=== PATIENT | female | born 1955 | race Caucasian/White ===

== ENCOUNTER → 2017-06-14 | Outpatient (CLI) | payer BC ==
--- NOTE | 2017-06-14 14:37 | Diagnostic Imaging Report ---
EXAMINATION: Three views of the sacrum and coccyx. INDICATION: Right leg pain. FINDINGS: There are mild degenerative changes with subchondral sclerosis seen at both SI joints. There are prominent degenerative sclerotic changes at the the facet joints of L5-S1 noted. There is also grade 1 spondylolisthesis of L5 over S1. A minimally prominent disc at the S1-S2 level is seen. No fracture, dislocation, or radiopaque foreign body is seen. IMPRESSION: Degenerative changes. Dictated by: Dictated on workstation # [id number]
--- NOTE | 2017-06-14 14:37 | Diagnostic Imaging Report ---
EXAMINATION: 3 views of the lumbar spine. INDICATION: Back pain. FINDINGS: There is grade 1 retrolisthesis of L2 over L3. There is also grade 1 spondylosis is L5 over S1. The vertebral body heights are preserved. There is mild disc height loss at L4/5 and L5/S1 levels. There is prominent facet sclerotic degenerative changes in the lower lumbar spine. Mild sclerotic degenerative changes in the SI joints region is seen. The paraspinal soft tissues appear unremarkable. IMPRESSION: Degenerative changes. The alignment abnormalities also seen possibly degenerative related as well. Dictated by: Dictated on workstation # [id number]
== END ==
LOC: RAD 13:31
PROVIDERS: ATTEND Nurse Practitioner Family
DX: M47.817 Spondylosis without myelopathy or radiculopathy, lumbosacral region (principal); M43.17 Spondylolisthesis, lumbosacral region
CPT/HCPCS: 72100; 72220

== ENCOUNTER → 2017-10-03 | Outpatient (CLI) | payer BC ==
--- NOTE | 2017-10-04 09:54 | Diagnostic Imaging Report ---
EXAMINATION: Bilateral screening mammogram 2D views with tomosynthesis. The current study was also evaluated with a Computer Aided Detection (CAD) system. INDICATION: Screening. PERSONAL HISTORY: No current complaints stated on the questionnaire. COMPARISON: 08/23/2016. FINDINGS: The breasts are composed of heterogeneously dense parenchyma which may decrease mammographic sensitivity. Allowing for technique and positional differences, no suspicious change is seen. IMPRESSION: Dense breasts with no definite change. ACR BI-RADS Category 2: Benign findings. Result letter will be mailed to the patient. Note: At least 10% of breast cancer is not imaged by mammography. Dictated by: Dictated on workstation # [id number]
== END ==
LOC: RAD 09:22
PROVIDERS: ATTEND Nurse Practitioner
DX: Z12.31 Encounter for screening mammogram for malignant neoplasm of breast (principal)
CPT/HCPCS: 77067

== ENCOUNTER 2017-11-15 10:00 | Outpatient (CLI) | payer BC ==
[~2017-11-15] VITALS: Ht 152.4 cm; Wt 62.1 kg
[2017-11-15] MEDS ORDERED: MELA1TAB20 PO (10:18)
[2017-11-15] MEDS ORDERED: TURM538C PO (10:18)
[2017-11-15] MEDS ORDERED: CHOL100045 PO (10:18)
[2017-11-15] MEDS ORDERED: LISI10TA2 PO (10:18)
[2017-11-15] MEDS ORDERED: ALPR0.5T PO (10:18)
== END 2017-11-15 10:19 ==
LOC: PREOP 10:00
PROVIDERS: ATTEND Surgery
DX: Z01.818 Encounter for other preprocedural examination (principal); Z12.11 Encounter for screening for malignant neoplasm of colon

== ENCOUNTER 2017-11-20 07:02 | Day surgery (SDC) | payer BC ==
[~2017-11-20] VITALS: Ht 152.4 cm; Wt 62.1 kg
[~2017-11-20 07:02] MED LIST: ALPR0.5T PO; CHOL100045 PO; LISI10TA2 PO; MELA1TAB20 PO; TURM538C PO
--- OUTSIDE RECORDS SUMMARY | 2017-11-20 07:05 | XMS REPORT | Continuity of Care Document ---
Author Author [facility] Organization [facility] Address Unknown Phone Unavailable Allergies Active Description Code Type Severity Reaction Onset Reported/Identified Relationship to Patient Clinical Status Yes No Known Drug Allergies [id number] Drug Allergy Unknown N/A 11/15/2017 Medications There is no data. Problems Date Dx Coded Attending Type Code Diagnosis Diagnosed By 07/30/2015 JAZMYN HICKMAN DO Ot V76.12 08/24/2016 Ot Z12.31 ENCNTR SCREEN MAMMOGRAM FOR MALIGNANT NE 08/24/2016 JAZMYN HICKMAN DO Ot V76.12 OTH SCREEN MAMMO-MALIGN NEOPLASM OF EMELI 08/24/2016 JAZMYN HICKMAN DO Ot V76.12 OTH SCREEN MAMMO-MALIGN NEOPLASM OF EMELI 08/24/2016 JAZMYN HICKMAN DO Ot V76.12 OTH SCREEN MAMMO-MALIGN NEOPLASM OF EMELI 08/24/2016 Ot Z12.31 ENCNTR SCREEN MAMMOGRAM FOR MALIGNANT NE 08/25/2016 Ot Z12.31 ENCNTR SCREEN MAMMOGRAM FOR MALIGNANT NE 09/01/2016 Ot Z12.31 ENCNTR SCREEN MAMMOGRAM FOR MALIGNANT NE 06/14/2017 JAZMYN HICKMAN DO Ot V76.12 OTH SCREEN MAMMO-MALIGN NEOPLASM OF EMELI 06/14/2017 JAZMYN HICKMAN DO Ot V76.12 OTH SCREEN MAMMO-MALIGN NEOPLASM OF EMELI 06/14/2017 JAZMYN HICKMAN DO Ot V76.12 OTH SCREEN MAMMO-MALIGN NEOPLASM OF EMELI 06/14/2017 Ot Z12.31 ENCNTR SCREEN MAMMOGRAM FOR MALIGNANT NE 06/15/2017 MANOJ COLLAZO Ot M43.17 SPONDYLOLISTHESIS, LUMBOSACRAL REGION 06/15/2017 MANOJ COLLAZO Ot M47.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 Results There is no data. Encounters ACCT No. Visit Date/Time Discharge Status Pt. Type Provider Facility Loc./Unit Complaint [id number] 11/15/2017 10:00:00 11/15/2017 10:19:00 DIS Outpatient RUPERTO BASS MD [facility] PREOP COLONOSCOPY [id number] 10/03/2017 09:22:00 10/03/2017 23:59:59 CLS Outpatient ELVIS SILVA [facility] RAD Z12.31 SCREENING [id number] 06/14/2017 13:31:00 06/14/2017 23:59:59 CLS Outpatient MANOJ COLLAZO [facility] RAD M79.60 [id number] 07/13/2015 10:03:00 07/13/2015 23:59:59 CLS Outpatient JAZMYN HICKMAN DO [facility] RAD SCREENING [id number] 07/11/2014 10:36:00 07/11/2014 23:59:59 CLS Outpatient JAZMYN HICKMAN DO [facility] RAD SCREENING [id number] 07/09/2013 08:54:00 07/09/2013 23:59:59 CLS Outpatient JAZMYN HICKMAN DO [facility] RAD SCREENING [id number] 11/20/2017 08:00:00 PEN Preadmit RUPERTO BASS MD [facility] ENDO SCREENING [id number] 08/23/2016 08:54:00 Document Registration
[2017-11-20] MEDS ORDERED: NS IV 500 ML 500 ML ONE (07:22)
[2017-11-20] MEDS ORDERED: NS IV 500 ML 500 ML IV PRN (07:35)
[2017-11-20 07:38] VITALS: BP 104/48
[2017-11-20] MEDS ORDERED: MIDAZOLAM 2 MG/2 ML (VERSED) VIAL ONE ×2 (08:24)
[2017-11-20] MEDS ORDERED: fentaNYL INJECTION 100 MCG/2 ML AMP ONE ×2 (08:24→08:40)
[2017-11-20] MEDS: fentaNYL INJECTION 100 MCG/2 ML AMP IVP PRN ×4 (08:26→08:41)
[2017-11-20] MEDS: MIDAZOLAM 2 MG/2 ML (VERSED) VIAL IVP PRN ×2 (08:27→08:35)
--- NOTE | 2017-11-20 08:31 | History & Physicial ---
History of Present Illness History of Present Illness Reason for visit/HPI To undergo screening colonoscopy.no family history of colon cancer Date of Admission 11/20/17 Date Seen by Provider: Nov 20, 2017 Time Seen by Provider: 08:28 I consulted on this patient on 11/20/17 08:27 Attending Physician Ruperto Bass MD Admitting Physician Paulie Tomlinson MD Consult Allergies and Home Medications Allergies Coded Allergies: No Known Drug Allergies (Unverified , 11/15/17) Home Medications Alprazolam 0.5 Mg Tablet, 0.5 MG PO HS PRN for SLEEP, (Reported) Cholecalciferol (Vitamin D3) 1,000 Unit Tablet, 1,000 UNIT PO DAILY, (Reported) Lisinopril 10 Mg Tablet, 10 MG PO DAILY, (Reported) Melatonin/Pyridoxine HCl (B6) 1 Each Tab.mphase, 10 MG PO HS, (Reported) Turmeric Root Extract 538 Mg Capsule, 538 MG PO DAILY, (Reported) Past Assdjqg-Kdkqyq-Yekuow Hx Patient Social History Marrital Status: Employed/Student: employed Alcohol Use: Rarely Uses Recreational Drug Use: No Smoking Status: Never a Smoker Recent Foreign Travel: No Contact w/other who traveled: No Recent Hopitalizations: No Recent Infectious Disease Expo: No Immunizations Up To Date Tetanus Booster (TDap): Unknown Date of Influenza Vaccine: Sep 12, 2017 Seasonal Allergies Seasonal Allergies: Yes (mild) Surgeries Yes Tonsillectomy, Tubal Ligation Respiratory Currently Using CPAP: No Currently Using BIPAP: No Cardiovascular Yes Hypertension Reproductive System Hx Reproductive Disorders: No Sexually Transmitted Disease: No HIV/AIDS: No Female Reproductive Disorders: Denies Musculoskeletal Yes Arthritis Constitutional: no symptoms reported EENTM: no symptoms reported Respiratory: no symptoms reported Cardiovascular: no symptoms reported Gastrointestinal: no symptoms reported Genitourinary: no symptoms reported Musculoskeletal: no symptoms reported Skin: no symptoms reported Psychiatric/Neurological: No Symptoms Reported Physical Exam Vital Signs Vital Sign - Last 12Hours 11/20/17 07:38 Temp 98.1 Pulse 75 Resp 18 B/P (MAP) 104/48 (66) Pulse Ox 98 O2 Delivery Room Air Capillary Refill : General Appearance: No Apparent Distress HEENT: Normal ENT Inspection Neck: Normal Inspection Respiratory: Lungs Clear Cardiovascular: Regular Rate, Rhythm Gastrointestinal: Non Tender, Soft Rectal: Deferred Back: Normal Inspection Extremity: Normal Inspection Neurologic/Psychiatric: Alert, Oriented x3 Skin: Warm/Dry Assessment/Plan Assessment and Plan lady with no family history of colon cancer. For screening colonoscopy. Details of the procedure, polypectomy, post polypectomy bleeding, iatrogenic perforation etc. discussed thoroughly. Seems to understand and is willing to proceed. Problems: RUPERTO BASS MD Nov 20, 2017 8:31 am
--- NOTE | 2017-11-20 08:32 | Conscious Sedation/ASA ---
Conscious Sedation Pre-Proced Time Reviewed: 08:12 ASA Class: 2 Airway Mallampati Classification: ([place] appropriate class) I. II. III, IV Lungs Heart ASA score ASA 1: a normal healthy patient ASA 2: a patient with a mild systemic disease (mid diabetes, controlled hypertension, obesity ASA 3: a patient with a severe systemic disease that limits activity (angina , COPD, prior Myocardial infarction) ASA 4: a patient with an incapacitating disease that is a constant threat to life (CHF, renal failure) ASA 5: a moribund patient not expected to survive 24 hrs. (ruptured aneurysm) ASA 6: a declared brain patient whose organs are being harvested. For emergent operations, add the letter E after the classification Grade 1 Sedation Plan: Discussed options with patient/fam Note The patient is an appropriate candidate to undergo the planned procedure, sedation, and anesthesia. The patient immediately re-assessed prior to indication. RUPERTO BASS MD Nov 20, 2017 8:31 am
--- NOTE | 2017-11-20 09:01 | Endo Procedure Record ---
Endo Procedure Report Date of Procedure Nov 20, 2017 Surgeon (s) RUPERTO BASS MD Post Procedure/Op Diagnosis Normal colonoscopy Procedure Performed Colonoscopy to cecum Description of Procedure Anesthesia Type: Conscious Sedation Specimen(s) collected/removed none Description of the Procedure indication for the procedure: This lady came in for screening colonoscopy. She denied any family history of colon cancer or polyps. Informed consent was obtained after reviewing the procedure in detail. Description of the procedure: She was placed in left lateral decubitus position and her vital signs were monitored. Conscious sedation was achieved using Versed and fentanyl. Digital rectal examination was unremarkable. The colonoscope was then introduced into the rectum and advanced all the way up to the cecum The quality of bowel preparation was excellent. The scope was then withdrawn slowly and the mucosa examined in a systematic fashion. There was no abnormality. She tolerated the procedure well and was taken back to the nursing area in a stable condition. Impression: Normal screening colonoscopy. No family history. Recommend repeating in 10 years. Copies To: AVERY ROGERS MD, XAVIER M MD Nov 20, 2017 9:01 am
--- NOTE | 2017-11-20 09:02 | Discharge Inst-Simple/Standard ---
Discharge Inst-Standard Discharge Medications New, Converted or Re-Newed RX: Other Patient Instructions/Follow Up Plan of Care/Instructions/FU: Repeat colonoscopy in 10 years Activity as Tolerated: Yes Discharge Diet: No Restrictions RUPERTO BASS MD Nov 20, 2017 9:02 am
[2017-11-20 09:10] VITALS: BP 104/48
[2017-11-20 09:40] VITALS: BP 111/41
[2017-11-20 09:45] VITALS: BP 111/41
== END 2017-11-20 09:45 | disposition home or self-care (01) ==
LOC: ENDO 07:02
PROVIDERS: ATTEND Surgery
DX: Z12.11 Encounter for screening for malignant neoplasm of colon (principal); I10 Essential (primary) hypertension; Z79.899 Other long term (current) drug therapy

== ENCOUNTER → 2018-10-19 | Outpatient (CLI) | payer BC ==
--- NOTE | 2018-10-19 10:06 | Diagnostic Imaging Report ---
INDICATION: Routine screening. COMPARISON: 10/03/2017 and 08/23/2016. TECHNIQUE: 2D and 3D bilateral screening mammography was performed with CAD. FINDINGS: Scattered fibroglandular densities are identified bilaterally. The parenchymal pattern is stable. No mass or malignant appearing microcalcifications are seen. The axillae are unremarkable. IMPRESSION: No mammographic features suspicious for malignancy are identified. ACR BI-RADS Category 1: Negative. Result letter will be mailed to the patient. Note: At least 10% of breast cancer is not imaged by mammography. Dictated by: Dictated on workstation # [id number]
== END ==
LOC: RAD 08:41
PROVIDERS: ATTEND Nurse Practitioner
DX: Z12.31 Encounter for screening mammogram for malignant neoplasm of breast (principal)
CPT/HCPCS: 77067

== ENCOUNTER → 2019-02-13 | Outpatient (CLI) | payer BC ==
--- NOTE | 2019-02-13 11:34 | Diagnostic Imaging Report ---
EXAMINATION: Magnetic resonance imaging of the left knee without intravenous contrast DATE: February 13, 2019. COMPARISON: MRI left knee of April 03, 2012. INDICATION: 63-year-old female, left knee pain and swelling. TECHNIQUE: Multiplanar/multisequence noncontrast enhanced MR imaging was accomplished. FINDINGS: MENISCI: There is very well demarcated blunting of the free edge of the medial meniscus which may relate to prior partial meniscectomy changes. The medial meniscus is otherwise intact. There is no fluid filled medial meniscal tear or parameniscal cyst. The lateral meniscus is intact. LIGAMENTS AND TENDONS: The anterior and posterior cruciate ligaments are intact. The medial collateral ligament is intact. The iliotibial band, mid third lateral capsular ligament, fibular collateral ligament, biceps femoris tendon, and conjoined tendon are intact. The quadriceps tendon and patella ligament are intact. JOINT: There are broad areas of full thickness cartilage loss of the medial compartment with adjacent degenerative-related marrow edema in the subchondral cyst in the medial tibial plateau. The lateral and patellofemoral compartment cartilage is grossly intact. There is no knee joint effusion, prominent synovitis, or intra-articular body. BONE: The additional bone marrow signal is unremarkable. Specifically, negative for fracture, osteomyelitis, osteonecrosis, or marrow replacing process. BURSAE AND SOFT TISSUES: There is a multiloculated ganglion cyst near the posterior aspect of the proximal tibia measuring approximately 18 x 14 x 20 mm in size. There is an additional more laterally located ganglion cyst measuring approximately 5.0 x 1.8 x 1.7 cm in size posteriorly which is posterior to the popliteus muscle. There is no definite communication with the proximal tibiofibular joint. The intramuscular signal is unremarkable. IMPRESSION: 1. Very smooth demarcated blunting of the free edge of the medial meniscus which may relate to prior partial meniscectomy changes. No medial meniscal tear. 2. Intact lateral meniscus. 3. Intact anterior and posterior cruciate ligaments. Additional ligaments and tendons are intact. 4. Severe medial compartment osteoarthritis which has progressed since the comparison exam. No knee joint effusion. 5. No acute fracture or bone contusion. 6. Ganglion cysts posteriorly which are new findings. Dictated on workstation # [id number]
--- NOTE | 2019-02-13 11:40 | Diagnostic Imaging Report ---
EXAMINATION: Magnetic resonance imaging of the right knee without intravenous contrast. DATE: February 13, 2019. COMPARISON: None. INDICATION: 63-year-old female, chronic right knee pain and swelling. TECHNIQUE: Multiplanar/multisequence noncontrast enhanced MR imaging was accomplished. FINDINGS: MENISCI: There is an oblique tear involving the anterior horn, body, and posterior horn of the medial meniscus. There is 6 mm of medial meniscal extrusion. There is a radially oriented tear involving the posterior root attachment of the medial meniscus. The lateral meniscus is intact. LIGAMENTS AND TENDONS: The anterior and posterior cruciate ligaments are intact. The medial collateral ligament is intact. The iliotibial band, mid third lateral capsular ligament, fibular collateral ligament, biceps femoris tendon, and conjoined tendon are intact. The quadriceps tendon and patella ligament are intact. JOINT: There is approximately 25-50% thinning of the cartilage at the lateral aspect of the medial patellar facet and median patellar ridge cartilage. There are broad areas of full thickness cartilage loss of the medial compartment. The lateral compartment cartilage is grossly intact. There is no knee joint effusion, prominent synovitis, or intra-articular body. BONE: There is edema-like signal in the medial femoral condyle and adjacent medial tibial plateau which is likely degenerative related. There is no acute fracture, bone contusion, or evidence of osteonecrosis. BURSAE AND SOFT TISSUES: There is a very small amount of fluid in the popliteal fossa without sizable Campos's cyst. IMPRESSION: 1. Extensive tear of the medial meniscus with 6 mm of medial meniscal extrusion. 2. Intact lateral meniscus. 3. Intact anterior and posterior cruciate ligaments. Additional ligaments and tendons are intact. 4. No acute fracture, bone contusion, or evidence of osteonecrosis. 5. Severe medial and mild to moderate patellofemoral compartment arthritis. No knee joint effusion, prominent synovitis, or intra-articular body. Dictated on workstation # [id number]
== END ==
LOC: RAD 08:18
PROVIDERS: ATTEND Family Medicine
DX: M17.0 Bilateral primary osteoarthritis of knee (principal); M67.462 Ganglion, left knee; M23.203 Derangement of unspecified medial meniscus due to old tear or injury, right knee; Z98.890 Other specified postprocedural states
CPT/HCPCS: 73721

== ENCOUNTER → 2019-10-29 | Outpatient (CLI) | payer BC ==
--- NOTE | 2019-10-29 13:04 | Diagnostic Imaging Report ---
INDICATION: Routine screening. COMPARISON: 10/19/2018 and 10/03/2017. TECHNIQUE: 2D and 3D bilateral screening mammography was performed with CAD. FINDINGS: Both breasts are heterogeneously dense, limiting the sensitivity of mammography. Benign calcifications are noted. No mass or malignant appearing microcalcifications are seen. The axillae are unremarkable. IMPRESSION: No mammographic features suspicious for malignancy are identified. ACR BI-RADS Category 2: Benign findings. Result letter will be mailed to the patient. Note: At least 10% of breast cancer is not imaged by mammography. Dictated by: Dictated on workstation # [id number]
== END ==
LOC: RAD 08:45
PROVIDERS: ATTEND Obstetrics & Gynecology
DX: Z12.31 Encounter for screening mammogram for malignant neoplasm of breast (principal)
CPT/HCPCS: 77067

== ENCOUNTER → 2020-11-24 | Outpatient (CLI) | payer BC, MEDICARE, OTHER ==
--- NOTE | 2020-11-24 11:26 | Diagnostic Imaging Report ---
INDICATION: Postmenopausal female. COMPARISON: 06/30/2011 FINDINGS: AP Spine L1-L4: [BMD (g/cm2): 1.243] [T-Score: 0.4] [Z-Score: 2.1] [BMD Previous: 1.284] [BMD % Change: -3.2] LT Hip Neck: [BMD (g/cm2): 0.949] [T-Score: -0.6] [Z-Score: 1.0] LT Hip Total: [BMD (g/cm2):0.871] [T-Score:-1.1] [Z-Score: 0.3] [BMD Previous: 1.027] [BMD % Change: -15.2] RT Hip Neck: [BMD (g/cm2):0.907] [T-Score:-0.9] [Z-Score:0.7] RT Hip Total: [BMD (g/cm2):0.852] [T-score:-1.2] [Z-Score:0.1] [BMD Previous:0.988] [BMD % Change:-13.8] Changes in bone density of the mean total hip and lumbar spine are statistically significant. World Health Organization criteria for BMD interpretation classify patients as Normal (T-score at or above -1.0), Osteopenic (T-score between -1.0 and -2.5) or Osteoporotic (T-score at or below -2.5). LIMITATIONS AND MODIFICATION: None. FRACTURE RISK (FRAX SCORE): The ten year probability of (%): Major Osteoporotic Fracture: [8.0] Hip Fracture: [0.6] IMPRESSION: 1. Osteopenia (Low bone mass). 2. Bone mineral density has decreased by a statistically significant amount, as detailed above. 3. See below National Osteoporosis Foundation guidelines on when to potentially initiate pharmacologic therapy. Based on the National Osteoporosis Foundation Guidelines, pharmacologic treatment should be initiated in any of the following, unless clinical conditions suggest otherwise: * Any patient with prior fragility fracture of the hip or vertebrae. A spine fracture indicates 5X risk for subsequent spine fracture and 2X risk for subsequent hip fracture. * Osteoporosis (T-score <-2.5). * Postmenopausal women and men age 50 and older with low bone mass/osteopenia (T-score between -1.0 and -2.5) by DXA and 10-year major osteoporotic fracture greater than 20% or a 10-year probability of hip fracture greater than 3%. These fracture risks are supplied above in the FRAX score, if applicable. * Clinician judgement and/or patient preferences may indicate treatment for people with 10-year fracture probabilities above or below these levels. Dictated by: Dictated on workstation # [id number]
--- NOTE | 2020-11-25 18:13 | Diagnostic Imaging Report ---
INDICATION: Screening. At this time there are no current complaints. EXAMINATION: Digital mammogram bilateral screening. 3D tomographic images were obtained and reviewed. The current study was also evaluated with a Computer Aided Detection (CAD) system. COMPARISON: This study was compared to the prior exams of 10/29/2019, 10/19/2018. FINDINGS: The fibroglandular tissue in both breasts is heterogeneously dense. This does limit the sensitivity of this exam. Overall, there does not appear to have been any significant change when compared to the prior study. No primary or secondary sign of malignancy is noted. IMPRESSION: There is no radiographic evidence for malignancy. ACR BI-RADS Category 1: Negative. Result letter will be mailed to the patient. Note: At least 10% of breast cancer is not imaged by mammography. Dictated by: Dictated on workstation # [id number]
== END ==
LOC: RAD 09:41
PROVIDERS: ATTEND Obstetrics & Gynecology
DX: Z12.31 Encounter for screening mammogram for malignant neoplasm of breast (principal); Z01.419 Encounter for gynecological examination (general) (routine) without abnormal findings; E55.9 Vitamin D deficiency, unspecified; M85.80 Other specified disorders of bone density and structure, unspecified site; Z78.0 Asymptomatic menopausal state
CPT/HCPCS: 77063; 77067; 77080

== ENCOUNTER → 2021-12-17 | Outpatient (CLI) | payer OTHER ==
[~2021-12-17] MED LIST changes: -LISI10TA2 PO; +LISI10TA25 PO
--- NOTE | 2021-12-17 12:10 | Diagnostic Imaging Report ---
INDICATION: Routine screening. COMPARISON is made with prior mammograms 11/24/2020 and 10/29/2019. 2-D and 3-D bilateral screening mammography was performed with CAD. Both breasts are heterogeneously dense, limiting the sensitivity of mammography. The parenchymal pattern is stable. No mass or malignant-appearing microcalcifications are seen. There are benign calcifications. Axillae are unremarkable. IMPRESSION: BI-RADS Category 2. ACR BI-RADS Category 2: Benign findings. Result letter will be mailed to the patient. Note: At least 10% of breast cancer is not imaged by mammography. Dictated by: Dictated on workstation # [id number]
== END ==
LOC: RAD 10:15
PROVIDERS: ATTEND Family Medicine
DX: Z12.31 Encounter for screening mammogram for malignant neoplasm of breast (principal)
CPT/HCPCS: 77063; 77067

== ENCOUNTER → 2022-12-20 | Outpatient (CLI) | payer MEDICARE, OTHER ==
--- NOTE | 2022-12-20 09:31 | Diagnostic Imaging Report ---
INDICATION: Postmenopausal state COMPARISON: 11/24/2020 FINDINGS: AP Spine L1-L4: [BMD (g/cm2): 1.156] [T-Score: -0.4] [Z-Score: 1.3] [BMD Previous: 1.243] [BMD % Change: -7.0*] LT Hip Neck: [BMD (g/cm2): 0.887] [T-Score: -1.1] [Z-Score: 0.5] LT Hip Total: [BMD (g/cm2):0.861] [T-Score:-1.2] [Z-Score: 0.2] [BMD Previous: 0.871] [BMD % Change: -1.1] RT Hip Neck: [BMD (g/cm2):0.867] [T-Score:-1.2] [Z-Score:0.4] RT Hip Total: [BMD (g/cm2):0.845] [T-score:-1.3] [Z-Score:0.1] [BMD Previous:0.852] [BMD % Change:-0.8] *Indicates significant change from prior examination based on 95% confidence level. World Health Organization criteria for BMD interpretation classify patients as Normal (T-score at or above -1.0), Osteopenic (T-score between -1.0 and -2.5) or Osteoporotic (T-score at or below -2.5). LIMITATIONS AND MODIFICATION: None. FRACTURE RISK (FRAX SCORE): The ten year probability of (%): Major Osteoporotic Fracture: [8.9] Hip Fracture: [0.9] IMPRESSION: 1. Osteopenia (Low bone mass). 2. Bone mineral density within the lumbar spine has significantly decreased since the prior examination. Bone mineral density within the bilateral hips has not significantly changed since the prior exam. 3. See below National Osteoporosis Foundation guidelines on when to potentially initiate pharmacologic therapy. Based on the National Osteoporosis Foundation Guidelines, pharmacologic treatment should be initiated in any of the following, unless clinical conditions suggest otherwise: * Any patient with prior fragility fracture of the hip or vertebrae. A spine fracture indicates 5X risk for subsequent spine fracture and 2X risk for subsequent hip fracture. * Osteoporosis (T-score <-2.5). * Postmenopausal women and men age 50 and older with low bone mass/osteopenia (T-score between -1.0 and -2.5) by DXA and 10-year major osteoporotic fracture greater than 20% or a 10-year probability of hip fracture greater than 3%. These fracture risks are supplied above in the FRAX score, if applicable. * Clinician judgement and/or patient preferences may indicate treatment for people with 10-year fracture probabilities above or below these levels. Dictated by: Dictated on workstation # [id number]
--- NOTE | 2022-12-20 16:14 | Diagnostic Imaging Report ---
INDICATION: Routine screening. COMPARISON: 12/17/2021 and 11/24/2020. TECHNIQUE: 2D and 3D bilateral screening mammography was performed with CAD. FINDINGS: Scattered fibroglandular densities are identified bilaterally. The parenchymal pattern is stable. No mass or malignant-appearing microcalcifications are seen. The axillae are unremarkable. IMPRESSION: No mammographic features suspicious for malignancy are identified. ACR BI-RADS Category 1: Negative. Result letter will be mailed to the patient. Note: At least 10% of breast cancer is not imaged by mammography. Dictated by: Dictated on workstation # [id number]
== END ==
LOC: RAD 09:00
PROVIDERS: ATTEND Family Medicine
DX: Z12.31 Encounter for screening mammogram for malignant neoplasm of breast (principal); M85.80 Other specified disorders of bone density and structure, unspecified site; Z78.0 Asymptomatic menopausal state
CPT/HCPCS: 77063; 77067; 77080